=== PATIENT | male | born 1950 | race Caucasian/White ===

== ENCOUNTER 2016-07-24 08:01 | Day surgery (SDC) | payer OTHER, BC ==
[2016-07-22 14:39] VITALS: BMI 22.1
--- NOTE | 2016-07-24 07:30 | HP ---
History & Physical Update - History History: No Change - Physical Physical: No Change - Assessment Assessment: No Change - Plan Plan: No Change
[2016-07-24] MEDS ORDERED: traMADol HCL 50 MG TABLET PO ONE (08:30)
[2016-07-24] MEDS ORDERED: MIDAZOLAM HCL 2 MG/2 ML SINGLE DOSE VIAL ONE (08:50)
[2016-07-24] MEDS ORDERED: ROCURONIUM BROMIDE 50 MG/5 ML VIAL ONE (08:57)
[2016-07-24] MEDS ORDERED: LIDOCAINE HCL/PF 2% SDV 5ML VIAL ONE (08:57)
[2016-07-24] MEDS ORDERED: ceFAZolin SODIUM 1 GM VIAL ONE (08:59)
[2016-07-24] MEDS ORDERED: DEXAMETHASONE SOD PHOSPHATE 4 MG/1 ML VIAL ONE (08:59)
[2016-07-24] MEDS ORDERED: ONDANSETRON 4 MG/2 ML VIAL ONE (08:59)
[2016-07-24] MEDS ORDERED: SCOPOLAMINE HYDROBROMIDE 1 PATCH PATCH.TD72 ONE (09:00)
[2016-07-24] MEDS ORDERED: BUPIVACAINE HCL 0.25% 125 MG/50 ML VIAL ONE (09:38)
[2016-07-24] MEDS ORDERED: BUPIVACAINE HCL/PF 2.5 MG/ML - 30 ML VIAL IJ ONE (09:38)
[2016-07-24] MEDS ORDERED: PROPOFOL 20 ML ONE ×3 (09:55→10:49)
[2016-07-24] MEDS ORDERED: GUM MASTIC/STORAX/MSAL/ALCOHOL 1 DRP DROPSBTL MC ONE (10:11)
[2016-07-24] MEDS ORDERED: THROMBIN (BOVINE) 5,000 UNIT VIAL TP ONE (10:36)
[2016-07-24] MEDS ORDERED: BUPIVACAINE HCL/PF 0.25% (2.5MG/ML) 10 ML VIAL IJ ONE (10:37)
[2016-07-24] MEDS ORDERED: NEOSTIGMINE METHYLSULFATE 0.5 MG/ML - 10 ML MDV ONE (10:44)
--- NOTE | 2016-07-24 11:07 | OP ---
Operative Note - Note: Operative Date: 07/24/16 Pre-Operative Diagnosis: Dural tear Operation: Dural tear repair L4-L5 Findings: Small, solitary tear in dura Post-Operative Diagnosis: Same as Pre-op Surgeon: Mynor Us Certified Adapted Physical Educator: Presley Rainey Anesthesia: General Estimated Blood Loss (mls): 15 Fluid Volume Replaced (mls): 1,000 Operative Report Dictated: Yes
[2016-07-24] MEDS ORDERED: D5-1/2NS+20 MEQ KCL - 1,000 ML IV SCH ×2 (11:30→22:30)
[2016-07-24] MEDS ORDERED: ACETAMINOPHEN 1000 MG/100 ML VIAL (NON FORMULARY) IVPB ONE (11:50)
[2016-07-24] MEDS ORDERED: ONDANSETRON 4 MG/2 ML VIAL IVPB PRN (13:13)
--- NOTE | 2016-07-24 13:42 | SURG ---
Surgery Director Of Cloud Services Note Director Of Cloud Services: Presley Rainey PA-C Date of Service: 07/24/16 Diagnosis: Dural tear Procedure: Dural tear repair L4-L5 I was present for the entirety of the operative procedure. For further detail, please refer to operative report. Visit type - Case Type Case Type: Scheduled Admission
--- NOTE | 2016-07-24 14:13 | OP ---
DATE OF OPERATION: 07/24/2016 PREOPERATIVE DIAGNOSIS: Dural tear. POSTOPERATIVE DIAGNOSIS: Dural tear. PROCEDURE PERFORMED: Exploration of dural tear and dural tear repair along with additional laminectomy. SURGEON: Mynor Us MD CARE NAVIGATOR: JAXON Sherwood ESTIMATED BLOOD LOSS: 50 mL. IV FLUIDS: Per Anesthesia. ANESTHESIA: General. COMPLICATIONS: There were none. DISPOSITION: The patient was brought to the PACU in stable condition. INDICATION FOR SURGERY: The patient is a 66-year-old gentleman who I did a laminectomy on a few weeks ago. He stated that a few weeks after surgery he began to experience headaches and increasing pain. We ordered an MRI, which showed that he had a dural tear. I discussed the results of the MRI with him and discussed the fact that he has a dural tear. We discussed various treatment options for this including blood patch versus direct repair. After discussing the risks and benefits each, the patient elected to have a direct repair. PROCEDURE IN DETAIL: The patient was brought to the operating room by the anesthesia staff. After appropriate patient identification was performed, general anesthesia was administered. He was placed prone onto the Bryce frame with all areas of bony prominences well-padded at this time. His back was prepped and draped in a sterile manner. At this point, a time-out was completed. His previous incision was opened up. CSF was noted at the time. This was completely irrigated out. Portions of the L4 lamina were removed to expose the dura. A dural tear was noted. Using a 6-0 Prolene suture, dural tear was closed. Valsalva maneuver raised to 30 mm was performed. There was no leakage. Irrigation was performed. A Duragen patch was placed. Tisseel was placed over that. The fascia was closed with a No. 1 Vicryl suture. The subcutaneous tissue was closed with a 2-0 Vicryl suture. The skin was closed with a 3-0 Monocryl suture. Dermabond was applied. Steri-Strips were applied. Sterile dressing was applied. The patient was placed supine on the OR bed, exacerbated in the OR, and brought to the PACU in stable condition. MYNOR US M.D. [id number]
[2016-07-24] MEDS: traMADol HCL 50 MG TABLET PO PRN ×2 (14:48→21:30)
[2016-07-24] MEDS: HYDROmorphone HCL CARPU-JECT 1 MG/1 ML DISP.SYRIN IVPUSH PRN ×2 (14:59→20:34)
[2016-07-24] MEDS: CEFAZOLIN 2 GM/D5W 50 ML IVPB SCH (17:31)
[2016-07-24] MEDS ORDERED: ACETAMINOPHEN 325 MG TABLET (FP) PO PRN (18:00)
[2016-07-24] MEDS: LORazepam 0.5 MG TABLET PO PRN (21:31)
[2016-07-25] MEDS: CEFAZOLIN 2 GM/D5W 50 ML IVPB SCH (01:39)
[2016-07-25] MEDS: HYDROmorphone HCL CARPU-JECT 1 MG/1 ML DISP.SYRIN IVPUSH PRN ×2 (01:52→06:32)
[2016-07-25] MEDS: LORazepam 0.5 MG TABLET PO PRN (03:56)
[2016-07-25] MEDS: traMADol HCL 50 MG TABLET PO PRN ×2 (03:57→09:26)
--- NOTE | 2016-07-25 07:55 | DS ---
Physical Exam: SUBJECTIVE: Patient seen and examined. POD #1 s/p dural tear repair (after laminectomy 3 weeks ago). C/o incisional tenderness but pain control via PRN meds. States his HAs have resolved. He's been oob and ambulating unassisted. Voiding spontaneously. Tolerating PO diet. Denies n/v/f/c, CP, SOB. OBJECTIVE: Last Vital Signs Temp Pulse Resp BP Pulse Ox 98.4 F 82 18 108/51 97 07/25/16 06:00 07/25/16 06:00 07/25/16 06:00 07/25/16 06:00 07/25/16 06:00 PHYSICAL EXAM GENERAL: The patient is awake, alert, and fully oriented, in no acute distress. HEAD: Normal with no signs of trauma. NECK: Trachea midline, full range of motion, supple. LUNGS: CTA b/l anteriorly HEART: RRR BACK: Lumbar incision c/d/i. Soft tissue swelling. No hematoma. EXTREMITIES: 2+ pulses, warm, well-perfused, no edema. NEUROLOGICAL: Cranial nerves II through XII grossly intact. Normal speech, gait not observed. PSYCH: Normal mood, normal affect. HOSPITAL COURSE: Date of Admission:07/24/16 Date of Discharge: 07/25/16 The patient was admitted to the Med-Surg Unit after an elective repair of their dura tear (s/p laminectomy 3 weeks ago). Now, s/p dura tear repair. The day of surgery, the patient ambulated the hallways with assistance. Narcotic and non-narcotic pain management control was achieved with an oral and IV approach. Sammi-operative IV ABX were administered. DVT prophylaxis was achieved with SCDs and early ambulation. Narcotic script were checked with [facility] prior to escribe. The discharge instructions and an oral pain management plan were reviewed with the patient. All questions answered. Above plan discussed with Dr. Us and agreed. Minutes to complete discharge: 15 <Presley Rainey P - Last Filed: 07/25/16 07:52> Physical Exam: SUBJECTIVE: Patient seen and examined OBJECTIVE: Vital Signs Temperature 98.1 F 07/25/16 08:44 Pulse Rate 70 07/25/16 08:44 Respiratory Rate 18 07/25/16 08:45 Blood Pressure 110/69 07/25/16 08:44 O2 Sat by Pulse Oximetry (%) 98 07/25/16 08:45 PHYSICAL EXAM GENERAL: The patient is awake, alert, and fully oriented, in no acute distress. HEAD: Normal with no signs of trauma. EYES: PERRL, extraocular movements intact, sclera anicteric, conjunctiva clear. ENT: Ears normal, nares patent, oropharynx clear without exudates, moist mucous membranes. NECK: Trachea midline, full range of motion, supple. LUNGS: Breath sounds equal, clear to auscultation bilaterally, no wheezes, no crackles, no accessory muscle use. HEART: Regular rate and rhythm, S1, S2 without murmur, rub or gallop. ABDOMEN: Soft, nontender, nondistended, normoactive bowel sounds, no guarding, no rebound, no hepatosplenomegaly, no masses. EXTREMITIES: 2+ pulses, warm, well-perfused, no edema. NEUROLOGICAL: Cranial nerves II through XII grossly intact. Normal speech, gait not observed. PSYCH: Normal mood, normal affect. SKIN: Warm, dry, normal turgor, no rashes or lesions noted. LABS CBC,CMP WBC 12.7 K/mm3 (4.0-10.0) H 07/25/16 07:00 RBC 3.64 M/mm3 (4.00-5.60) L 07/25/16 07:00 Hgb 12.2 GM/dl (11.7-16.9) 07/25/16 07:00 Hct 36.0 % (35.4-49) 07/25/16 07:00 MCV 98.9 fl (80-96) H 07/25/16 07:00 MCHC 33.8 g/dl (32.0-35.9) 07/25/16 07:00 RDW 12.1 % (11.9-15.9) 07/25/16 07:00 Plt Count 239 K/MM3 (134-434) 07/25/16 07:00 MPV 8.6 fl (7.5-11.1) 07/25/16 07:00 Sodium 137 mmol/L (136-145) 07/25/16 07:00 Potassium 4.0 mmol/L (3.5-5.1) 07/25/16 07:00 Chloride 105 mmol/L (98-107) 07/25/16 07:00 Carbon Dioxide 28 mmol/L (22-28) 07/25/16 07:00 Anion Gap 4 (8-16) L 07/25/16 07:00 BUN 12 mg/dl (7-18) 07/25/16 07:00 Creatinine 1.0 mg/dl (0.6-1.3) 07/25/16 07:00 Random Glucose 100 mg/dl (74-106) 07/25/16 07:00 Calcium 8.8 mg/dl (8.4-10.2) 07/25/16 07:00 HOSPITAL COURSE: Date of Admission:07/24/16 Date of Discharge: 07/25/16 The patient was admitted to the Med-Surg Unit after an elective repair of their (problem). Now, s/p ( procedure ). The day of surgery, the patient ambulated the hallways with assistance. Narcotic and non-narcotic pain management control was achieved with an oral and IV approach. POD #1, the surgical drain was removed fully intact and without incident. An xray was obtained and confirmed hardware placement at (level of ), no fractures or dislocations. Sammi-operative IV ABX were administered. DVT prophylaxis was achieved with SCDs and early ambulation. The patient ambulated with Physical Therapy and no services were recommended upon discharge. Narcotic scripts and or muscle relaxants were checked with [place] [facility] prior to escibe. The discharge instructions and an oral pain management plan were reviewed with the patient. All questions answered. Above plan discussed with Dr. Us and agreed. Patient seen and examined Please note xrays were not obtained as hardware was not placed Patient able to ambulate without headaches OOB D/C Planning <Mynor Us - Last Filed: 07/25/16 13:42> Visit type - Case Type Case Type: Scheduled Admission <Presley Rainey - Last Filed: 07/25/16 07:52>
[2016-07-25 08:17] LABS: MCH 33.4 pg (25.7-33.7); MCHC 33.8 g/dl (32.0-35.9); MEAN CELL VOLUME 98.9 fl (80-96); MEAN PLT VOLUME 8.6 fl (7.5-11.1); PLATELET COUNT 239 K/MM3 (134-434); RDW 12.1 % (11.9-15.9); WHITE BLOOD COUNT 12.7 K/mm3 (4.0-10.0)
[2016-07-25 08:34] LABS: CALCIUM 8.8 mg/dl (8.4-10.2)
[2016-07-25 08:45] VITALS: BP 110/69; PULSE 70; TEMP 98.1
[2016-07-25] MEDS ORDERED: ASPIRIN 81 MG CHEWABLE TABLETS PO SCH (10:00)
--- NOTE | 2016-07-25 10:25 | PN ---
Progress Note (short form) - Note Progress Note: ANESTHESIA POST-OP CHECK 66M s/p dural tear repair under general anesthesia , POD #1. Denies nausea, no vomiting, tolerating PO. Pain 5-7/10 and tolerable. Ambulating and voiding. Vital Signs Temperature 98.1 F 07/25/16 08:44 Pulse Rate 70 07/25/16 08:44 Respiratory Rate 18 07/25/16 08:45 Blood Pressure 110/69 07/25/16 08:44 O2 Sat by Pulse Oximetry (%) 98 07/25/16 08:45 Active Medications Acetaminophen (Tylenol -) 650 mg PO Q6H PRN PRN Reason: FEVER Aspirin (Asa -) 81 mg PO DAILY [facility] Last Admin: 07/25/16 09:25 Dose: 81 mg Hydromorphone HCl (Dilaudid Injection -) 0.5 mg IVPUSH Q2H PRN PRN Reason: PAIN Last Admin: 07/25/16 06:32 Dose: 0.5 mg Potassium Chloride/Dextrose/Sod Cl (D5-1/2ns+20 Meq Kcl -) 1,000 mls @ 42 mls/ hr IV ASDIR ANOOP Last Admin: 07/24/16 22:51 Dose: 42 mls/hr Lorazepam (Ativan -) 0.5 mg PO QID PRN PRN Reason: ANXIETY Last Admin: 07/25/16 03:56 Dose: 0.5 mg Ondansetron HCl (Zofran Injection) 4 mg IVPB Q6H PRN PRN Reason: NAUSEA AND/OR VOMITING Tramadol HCl (Ultram -) 50 mg PO Q6H PRN PRN Reason: BACK PAIN Last Admin: 07/25/16 09:26 Dose: 50 mg Gen: Awake, alert No apparent anesthesia complications. Pain well controlled. Continue management as per primary team.
== END 2016-07-25 14:13 | disposition home or self-care (01) ==
LOC: FASU 08:01 → FM/S 13:06 → FASU 07-25 14:13
PROVIDERS: ATTEND Orthopaedic Surgery Orthopaedic Surgery of the Spine
PROC: 00QT0ZZ Repair Spinal Meninges, Open Approach (ICD-10-PCS; principal; 2016-07-24 10:15)
DX: G96.11 Dural tear (principal)
CPT/HCPCS: 36415; 80048; 85027; 94760